=== PATIENT | male | born 1960 | race Two or more races ===

== ENCOUNTER 2020-11-03 09:34 | Inpatient (IN) | payer OTHER ==
[2020-11-03 10:03] VITALS: BMI 32.3
[2020-11-03] MEDS ORDERED: MAGNESIUM CITRATE 300 ML BOTTLE PO PRN (11:04)
[2020-11-03] MEDS ORDERED: MAGNESIUM HYDROX 2400MG/30ML ORAL SUSPENSION 30 ML CUP PO PRN (11:04)
[2020-11-03] MEDS ORDERED: ONDANSETRON *ODT* 4 MG TABLET SL PRN (11:04)
[2020-11-03] MEDS ORDERED: ACETAMINOPHEN 325 MG TABLET (FP) PO PRN ×2 (11:04)
[2020-11-03] MEDS ORDERED: MAG HYDROX/AL HYDROX/SIMETH 30 ML UNIT-DOSE CUP PO PRN (11:04)
[2020-11-03] MEDS ORDERED: MENTHOL/PHENOL 1 EACH UD MM PRN (11:04)
[2020-11-03] MEDS ORDERED: hydrOXYzine PAMOATE 25 MG CAPSULE (FP) PO PRN (11:04)
[2020-11-03] MEDS ORDERED: METHOCARBAMOL 500 MG TABLET PO PRN (11:04)
[2020-11-03] MEDS ORDERED: ALBUTEROL SO4 2.5/IPRATROPIUM 0.5 INH SOL 3 ML VIAL.NEB. NEB PRN (11:08)
[2020-11-03] MEDS ORDERED: ALBUTEROL SO4 HFA INHALER IH PRN (11:09)
[2020-11-03] MEDS ORDERED: LOSARTAN POTASSIUM 25 MG TABLET PO SCH (11:15)
[2020-11-03] MEDS: BUDESONIDE/FORMETEROL FUMARATE 160/4.5 mcg INHALER IH SCH (12:57)
[2020-11-03] MEDS: BUPRENORPHINE/NALOXONE 8 MG/2 MG FILM PACKET SL SCH ×2 (12:58→22:04)
[2020-11-03] MEDS: NICOTINE 14 MG/24 HOURS TOPICAL PATCH TD SCH (12:58)
[2020-11-03] MEDS: sitaGLIPtin PHOSPHATE 50 MG TABLET PO SCH (15:24)
[2020-11-03] MEDS: chlordiazePOXIDE HCL 25 MG CAPSULE PO SCH ×2 (17:28→22:03)
[2020-11-03] MEDS: INSULIN SLIDING SCALE (NOVOLOG) 1 VIAL SQ SCH ×2 (17:29→21:31)
[2020-11-03] MEDS ORDERED: TRIMETHOBENZAMIDE HCL 200MG/2ML INJ IM ONE ×2 (17:47→22:21)
[2020-11-03] MEDS ORDERED: METOPROLOL TARTRATE 50 MG TABLET (FP) PO ONE (17:49)
[2020-11-03] MEDS: chlordiazePOXIDE HCL 25 MG CAPSULE PO PRN (20:19)
[2020-11-03] MEDS ORDERED: amLODIPine BESYLATE 10 MG TABLET (FP) PO ONE (21:33)
[2020-11-03] MEDS: INSULIN (LEVEMIR) 100 UNITS/ML UNITS SQ SCH (22:03)
[2020-11-03] MEDS: THIAMINE HCL 100 MG TABLET (FP) PO SCH (22:04)
[2020-11-03] MEDS: ATORVASTATIN CA 80 MG TABLET (FP) PO SCH (22:04)
[2020-11-03] MEDS: MELATONIN 5 MG TABLETS PO SCH (22:04)
[2020-11-03] MEDS ORDERED: LISINOPRIL 20 MG TABLET PO ONE (23:53)
[2020-11-04] MEDS: chlordiazePOXIDE HCL 25 MG CAPSULE PO SCH ×4 (06:22→23:32)
[2020-11-04] MEDS: sitaGLIPtin PHOSPHATE 50 MG TABLET PO SCH (06:24)
[2020-11-04] MEDS: INSULIN SLIDING SCALE (NOVOLOG) 1 VIAL SQ SCH ×4 (06:47→22:09)
[2020-11-04 09:23] LABS: HEMATOCRIT 39.3 % (35.4-49); HEMOGLOBIN 13.5 GM/dL (11.7-16.9); MCH 31.2 pg (25.7-33.7); MCHC 34.4 g/dl (32.0-35.9); MEAN CELL VOLUME 90.7 fl (80-96); MEAN PLT VOLUME 9.4 fl (7.5-11.1); PLATELET COUNT 253 K/MM3 (134-434); RBC 4.33 M/mm3 (4.00-5.60); RDW 15.8 % (11.9-15.9); WHITE BLOOD COUNT 13.4 K/mm3 (4.0-10.0)
[2020-11-04 09:28] LABS: POTASSIUM 3.2 mmol/L (3.5-5.1)
[2020-11-04 09:34] LABS: ALBUMIN 3.7 g/dl (3.4-5.0); BLOOD UREA NITROGEN 8.4 mg/dL (7-18)
[2020-11-04 09:37] LABS: CREATININE 0.9 mg/dL (0.55-1.3)
[2020-11-04 09:39] LABS: TOT PROT 7.1 g/dl (6.4-8.2)
[2020-11-04] MEDS: PRENATAL VITAMINS W/ FOLIC ACID TABLET (FP) PO SCH (10:01)
[2020-11-04] MEDS: MONTELUKAST NA 10 MG TABLET PO SCH (10:02)
[2020-11-04] MEDS: LOSARTAN POTASSIUM 50 MG TABLET PO SCH (10:02)
[2020-11-04] MEDS: amLODIPine BESYLATE 5 MG TABLET (FP) PO SCH (10:02)
[2020-11-04] MEDS: NICOTINE 14 MG/24 HOURS TOPICAL PATCH TD SCH (10:02)
[2020-11-04] MEDS: BUPRENORPHINE/NALOXONE 8 MG/2 MG FILM PACKET SL SCH ×2 (10:03→23:04)
[2020-11-04] MEDS: BUDESONIDE/FORMETEROL FUMARATE 160/4.5 mcg INHALER IH SCH (10:05)
[2020-11-04] MEDS: QUEtiapine FUMARATE 100 MG TABLET (FP) PO SCH ×2 (11:05→23:04)
[2020-11-04] MEDS ORDERED: POTASSIUM CHLORIDE TABS 20 MEQ TABLET.ER (FP) PO ONE ×2 (13:12→17:13)
[2020-11-04] MEDS: PARoxetine HCL 20 MG TABLET PO SCH (18:12)
[2020-11-04] MEDS ORDERED: LOPERAMIDE HCL 2 MG CAPSULE PO ONE (18:20)
[2020-11-04] MEDS: INSULIN (LEVEMIR) 100 UNITS/ML UNITS SQ SCH (23:03)
[2020-11-04] MEDS: THIAMINE HCL 100 MG TABLET (FP) PO SCH (23:04)
[2020-11-04] MEDS: MELATONIN 5 MG TABLETS PO SCH (23:04)
[2020-11-04] MEDS: ATORVASTATIN CA 80 MG TABLET (FP) PO SCH (23:04)
[2020-11-04] MEDS: chlordiazePOXIDE HCL 25 MG CAPSULE PO PRN (23:31)
[2020-11-05] MEDS: sitaGLIPtin PHOSPHATE 50 MG TABLET PO SCH (06:08)
[2020-11-05] MEDS: chlordiazePOXIDE HCL 25 MG CAPSULE PO SCH ×2 (06:08→10:06)
[2020-11-05] MEDS: INSULIN SLIDING SCALE (NOVOLOG) 1 VIAL SQ SCH ×2 (06:08→11:09)
[2020-11-05] MEDS: BUPRENORPHINE/NALOXONE 8 MG/2 MG FILM PACKET SL SCH (10:05)
[2020-11-05] MEDS: MONTELUKAST NA 10 MG TABLET PO SCH (10:05)
[2020-11-05] MEDS: PARoxetine HCL 20 MG TABLET PO SCH (10:06)
[2020-11-05] MEDS: LOSARTAN POTASSIUM 50 MG TABLET PO SCH (10:06)
[2020-11-05] MEDS: QUEtiapine FUMARATE 100 MG TABLET (FP) PO SCH (10:06)
[2020-11-05] MEDS: BUDESONIDE/FORMETEROL FUMARATE 160/4.5 mcg INHALER IH SCH (10:06)
[2020-11-05] MEDS: amLODIPine BESYLATE 5 MG TABLET (FP) PO SCH (10:06)
[2020-11-05] MEDS: PRENATAL VITAMINS W/ FOLIC ACID TABLET (FP) PO SCH (10:07)
[2020-11-05] MEDS: NICOTINE 14 MG/24 HOURS TOPICAL PATCH TD SCH (10:07)
[2020-11-05 10:45] LABS: POTASSIUM 3.6 mmol/L (3.5-5.1)
[2020-11-05 10:47] LABS: BLOOD UREA NITROGEN 12.6 mg/dL (7-18)
[2020-11-05 10:50] LABS: CREATININE 3.3 mg/dL (0.55-1.3)
[2020-11-05 10:54] LABS: CALCIUM 9.3 mg/dL (8.5-10.1)
[2020-11-05 13:01] VITALS: BP 109/72; PULSE 91; TEMP 98.2
[2020-11-06] MEDS ORDERED: chlordiazePOXIDE HCL 10 MG CAPSULE PO PRN
[2020-11-06] MEDS ORDERED: chlordiazePOXIDE HCL 10 MG CAPSULE PO SCH (05:00)
[2020-11-07] MEDS ORDERED: chlordiazePOXIDE HCL 10 MG CAPSULE PO SCH (05:00)
[2020-11-08] MEDS ORDERED: chlordiazePOXIDE HCL 10 MG CAPSULE PO ONE (05:00)
== END 2020-11-05 15:58 | disposition short-term general hospital (02) | DRG 897 ==
LOC: YASAS 09:34 → Y3N 11:28
PROVIDERS: ADMIT Allergy & Immunology; ATTEND Allergy & Immunology
PROC: HZ2ZZZZ Detoxification Services for Substance Abuse Treatment (ICD-10-PCS; principal; 2020-11-03)
DX: F10.230 Alcohol dependence with withdrawal, uncomplicated (principal); F11.20 Opioid dependence, uncomplicated; F32.2 Major depressive disorder, single episode, severe without psychotic features; C34.91 Malignant neoplasm of unspecified part of right bronchus or lung; E87.1 Hypo-osmolality and hyponatremia; G40.89 Other seizures; F17.210 Nicotine dependence, cigarettes, uncomplicated; F10.282 Alcohol dependence with alcohol-induced sleep disorder; F10.24 Alcohol dependence with alcohol-induced mood disorder; E87.6 Hypokalemia; E78.5 Hyperlipidemia, unspecified; E11.42 Type 2 diabetes mellitus with diabetic polyneuropathy; Z79.4 Long term (current) use of insulin; I10 Essential (primary) hypertension; J44.9 Chronic obstructive pulmonary disease, unspecified; N40.0 Benign prostatic hyperplasia without lower urinary tract symptoms; R06.2 Wheezing; Z88.6 Allergy status to analgesic agent; Z91.018 Allergy to other foods; Z98.890 Other specified postprocedural states
CPT/HCPCS: 36415; 80048; 80053; 82962; 85027; 86780; 93005; 93010; C9803; Q0162; U0003; U0005

== ENCOUNTER 2020-11-05 11:16 | Inpatient (IN) | payer OTHER ==
[2020-11-05] MEDS ORDERED: SODIUM CHLORIDE 0.9% 500 ML INFUS.BAG IV ONE (12:29)
[2020-11-05] MEDS ORDERED: methylPREDNISolone NA SUCC 125 MG/2 ML VIAL IVPB ONE ×2 (13:30→18:04)
[2020-11-05 13:40] LABS: BASO % 0.6 % (0-2.0); HEMATOCRIT 36.8 % (35.4-49); HEMOGLOBIN 12.4 GM/dL (11.7-16.9); LYMPH % 10.3 % (8-40); MCHC 33.8 g/dl (32.0-35.9); MEAN CELL VOLUME 91.7 fl (80-96); MEAN PLT VOLUME 9.6 fl (7.5-11.1); MONO % 5.1 % (3.8-10.2); PLATELET COUNT 184 K/MM3 (134-434); RBC 4.01 M/mm3 (4.00-5.60); RDW 15.8 % (11.9-15.9); WHITE BLOOD COUNT 19.1 K/mm3 (4.0-10.0)
[2020-11-05] MEDS ORDERED: methylPREDNISolone NA SUCC 125 MG/2 ML VIAL ONE ×2 (13:41→19:51)
[2020-11-05 13:42] LABS: INR 0.9 (0.83-1.09); PROTHROMBIN TIME (PATIENT) 10.9 SEC (9.7-13.0)
[2020-11-05 13:45] LABS: ACTIVATED PTT 26.1 SECONDS (25.2-36.5)
[2020-11-05] MEDS: ALBUTEROL SO4 2.5/IPRATROPIUM 0.5 INH SOL 3 ML VIAL.NEB. NEB SCH ×2 (13:50→14:05)
[2020-11-05 14:06] LABS: CHLORIDE 97 mmol/L (98-107); SODIUM 134 mmol/L (136-145)
[2020-11-05 14:08] LABS: ALBUMIN 3.4 g/dl (3.4-5.0); ANION GAP 11 MMOL/L (8-16); BLOOD UREA NITROGEN 13.3 mg/dL (7-18); CALCIUM 9.6 mg/dL (8.5-10.1); CO2 25 mmol/L (21-32); GLUCOSE,RANDOM 73 mg/dL (74-106)
[2020-11-05 14:11] LABS: SGOT/AST 49 U/L (15-37); SGPT/ALT 27 U/L (13-61)
[2020-11-05 14:13] LABS: TOT PROT 6.6 g/dl (6.4-8.2)
[2020-11-05 14:14] LABS: ALK PHOS 111 U/L (45-117)
[2020-11-05 14:20] LABS: ANISOCYTOSIS 1+; MACROCYTOSIS 0; PLATELET ESTIMATE NORMAL
[2020-11-05 19:30] LABS: EPI CELLS >36 /uL (0-25.1); HYALINE CASTS 46 /uL (0-3.1); URINE APPEARANCE TURBID; URINE BACTERIA 95 /uL (0-1359); URINE BILIRUBIN NEGATIVE (NEGATIVE); URINE COLOR YELLOW; URINE GLUCOSE (UA) NEGATIVE (NEGATIVE); URINE KETONE TRACE (NEGATIVE); URINE LEUK ESTERASE NEGATIVE (NEGATIVE); URINE NITRITE NEGATIVE (NEGATIVE); URINE PROTEIN 2+ (NEGATIVE); URINE UROBILINOGEN 0.2 mg/dL (0.2-1.0); URINE WBC 50 /uL (0-25.8)
[2020-11-05 19:54] LABS: URINE AMPHETAMINES NEGATIVE ng/ml (CUTOFF=500); URINE BARBITURATES NEGATIVE ng/ml (CUTOFF=200)
[2020-11-05 19:55] LABS: COCAINE, UR NEGATIVE ng/ml (CUTOFF=300); METHADONE, UR NEGATIVE ng/ml (CUTOFF=300); OPIATES, URI NEGATIVE ng/ml (CUTOFF=300)
[2020-11-05 19:56] LABS: PHENCYCLIDINE,URINE NEGATIVE ng/ml (CUTOFF=25)
[2020-11-05 20:39] LABS: URINE BENZODIAZEPINES POSITIVE ng/ml (CUTOFF=200)
[2020-11-05] MEDS ORDERED: BUPRENORPHINE/NALOXONE 8 MG/2 MG FILM PACKET ONE (23:54)
[2020-11-05] MEDS: BUPRENORPHINE/NALOXONE 8 MG/2 MG FILM PACKET SL SCH (23:58)
[2020-11-06] MEDS ORDERED: chlordiazePOXIDE 5 MG CAPSULE ONE
[2020-11-06] MEDS: chlordiazePOXIDE HCL 10 MG CAPSULE PO SCH ×2 (00:02→12:01)
[2020-11-06 01:31] LABS: URINE RBC 95.4 /uL (0-23.9)
[2020-11-06] MEDS ORDERED: guaiFENesin/D-METHORPHAN HB 10 ML UNIT-DOSE CUPS PO PRN (02:26)
[2020-11-06] MEDS: DOCUSATE SODIUM 100 MG CAPSULE (FP) PO SCH ×3 (03:55→21:51)
[2020-11-06 06:49] LABS: POTASSIUM 4.4 mmol/L (3.5-5.1)
[2020-11-06 06:51] LABS: ALBUMIN 3.2 g/dl (3.4-5.0); CALCIUM 8.2 mg/dL (8.5-10.1)
[2020-11-06 06:52] LABS: BLOOD UREA NITROGEN 30.2 mg/dL (7-18); MAGNESIUM 1.2 mg/dL (1.8-2.4)
[2020-11-06 06:54] LABS: CREATININE 2.8 mg/dL (0.55-1.3)
[2020-11-06 06:55] LABS: PHOSPHOROUS 4.2 mg/dL (2.5-4.9)
[2020-11-06 06:56] LABS: BILIRUBIN,TOTAL 0.6 mg/dL (0.2-1); TOT PROT 6.2 g/dl (6.4-8.2)
[2020-11-06] MEDS: INSULIN SLIDING SCALE (NOVOLOG) 1 VIAL SQ SCH ×4 (07:07→22:31)
[2020-11-06] MEDS: HEPARIN NA (PORCINE) 5,000 UNITS/ML 1ML VIAL SQ SCH ×3 (07:07→21:53)
[2020-11-06] MEDS ORDERED: THIAMINE HCL 100 MG TABLET (FP) ONE (08:49)
[2020-11-06] MEDS ORDERED: predniSONE 20 MG TABLET (UD) ONE (08:49)
[2020-11-06] MEDS ORDERED: ALBUTEROL SO4 2.5/IPRATROPIUM 0.5 INH SOL 3 ML VIAL.NEB. NEB ONE (08:49)
[2020-11-06] MEDS ORDERED: BUPRENORPHINE/NALOXONE 8 MG/2 MG FILM PACKET ONE (08:50)
[2020-11-06] MEDS ORDERED: PANTOPRAZOLE 20 MG TABLET PO ONE (08:50)
[2020-11-06] MEDS ORDERED: CEFTRIAXONE 1 GM/50 ML BAG ONE (08:51)
[2020-11-06] MEDS ORDERED: AZITHROMYCIN IVPB 500 MG/250 ML BAG IVPB ONE (08:51)
[2020-11-06] MEDS ORDERED: FOLIC ACID 1 MG TABLET (FP) ONE (08:51)
[2020-11-06] MEDS ORDERED: DOCUSATE SODIUM 100 MG CAPSULE (FP) PO ONE (08:51)
[2020-11-06] MEDS: CEFTRIAXONE 1 GM in DEXTROSE 5%-WATER - 50 ML IVPB SCH (09:32)
[2020-11-06] MEDS: ALBUTEROL SO4 2.5/IPRATROPIUM 0.5 INH SOL 3 ML VIAL.NEB. NEB SCH ×3 (09:45→20:30)
[2020-11-06] MEDS: POLYETHYLENE GLYCOL 3350 119 GM BTL PO SCH (09:46)
[2020-11-06] MEDS: FOLIC ACID 1 MG TABLET (FP) PO SCH (09:46)
[2020-11-06] MEDS: NICOTINE 7 MG/24 HOURS TOPICAL PATCH TD SCH (09:46)
[2020-11-06] MEDS: PANTOPRAZOLE 20 MG TABLET PO SCH (09:46)
[2020-11-06] MEDS: THIAMINE HCL 100 MG TABLET (FP) PO SCH (09:47)
[2020-11-06] MEDS: BUPRENORPHINE/NALOXONE 8 MG/2 MG FILM PACKET SL SCH ×2 (09:47→21:51)
[2020-11-06] MEDS: AZITHROMYCIN IVPB 500 MG/250 ML BAG IVPB SCH (09:47)
[2020-11-06] MEDS ORDERED: predniSONE 20 MG TABLET (UD) PO SCH (10:00)
[2020-11-06 11:02] LABS: HEMATOCRIT 32.1 % (35.4-49); HEMOGLOBIN 11.1 GM/dL (11.7-16.9); MCH 31.5 pg (25.7-33.7); MCHC 34.5 g/dl (32.0-35.9); MEAN CELL VOLUME 91.4 fl (80-96); MEAN PLT VOLUME 9.8 fl (7.5-11.1); PLATELET COUNT 156 K/MM3 (134-434); RBC 3.51 M/mm3 (4.00-5.60); RDW 15.6 % (11.9-15.9); WHITE BLOOD COUNT 12.6 K/mm3 (4.0-10.0)
[2020-11-06] MEDS: CLOTRIMAZOLE 1% CREAM 15 GM TUBE TP SCH ×2 (12:17→21:54)
[2020-11-06 14:12] VITALS: BMI 32.4
[2020-11-06] MEDS: methylPREDNISolone NA SUCC 40 MG/1 ML VIAL IVPUSH SCH ×2 (14:59→21:42)
[2020-11-06] MEDS ORDERED: MAGNESIUM SULF 50% (8.12 MEQ/2 ML-1 GM VIAL) IVPB ONE (15:34)
[2020-11-06] MEDS ORDERED: MAGNESIUM OXIDE 400 MG TABLET (FP) PO ONE (15:35)
[2020-11-06] MEDS ORDERED: SODIUM CHLORIDE 1,000 ML IV SCH (15:45)
[2020-11-06] MEDS ORDERED: PT OWN MED DRAWER 7, Y5N ONE (21:48)
[2020-11-06] MEDS ORDERED: chlordiazePOXIDE HCL 10 MG CAPSULE PO ONE (22:00)
[2020-11-07] MEDS: methylPREDNISolone NA SUCC 40 MG/1 ML VIAL IVPUSH SCH ×4 (02:09→21:51)
[2020-11-07] MEDS: INSULIN SLIDING SCALE (NOVOLOG) 1 VIAL SQ SCH ×4 (06:40→21:34)
[2020-11-07] MEDS: HEPARIN NA (PORCINE) 5,000 UNITS/ML 1ML VIAL SQ SCH ×3 (06:42→21:35)
[2020-11-07] MEDS: ALBUTEROL SO4 2.5/IPRATROPIUM 0.5 INH SOL 3 ML VIAL.NEB. NEB SCH ×3 (07:55→20:04)
[2020-11-07 08:43] LABS: POTASSIUM 4.1 mmol/L (3.5-5.1)
[2020-11-07 08:49] LABS: CALCIUM 9.3 mg/dL (8.5-10.1)
[2020-11-07 08:50] LABS: ALBUMIN 3.4 g/dl (3.4-5.0); BLOOD UREA NITROGEN 39.2 mg/dL (7-18)
[2020-11-07 08:53] LABS: CREATININE 1.4 mg/dL (0.55-1.3)
[2020-11-07 08:54] LABS: BILIRUBIN,TOTAL 0.4 mg/dL (0.2-1); TOT PROT 6.7 g/dl (6.4-8.2)
[2020-11-07] MEDS ORDERED: PT OWN MED DRAWER 7, Y5N ONE (09:58)
[2020-11-07] MEDS: PANTOPRAZOLE 20 MG TABLET PO SCH (10:02)
[2020-11-07] MEDS: BUPRENORPHINE/NALOXONE 8 MG/2 MG FILM PACKET SL SCH ×2 (10:02→21:37)
[2020-11-07] MEDS: DOCUSATE SODIUM 100 MG CAPSULE (FP) PO SCH ×2 (10:02→21:37)
[2020-11-07] MEDS: THIAMINE HCL 100 MG TABLET (FP) PO SCH (10:02)
[2020-11-07] MEDS: POLYETHYLENE GLYCOL 3350 119 GM BTL PO SCH (10:03)
[2020-11-07] MEDS: FOLIC ACID 1 MG TABLET (FP) PO SCH (10:03)
[2020-11-07] MEDS: NICOTINE 7 MG/24 HOURS TOPICAL PATCH TD SCH (10:03)
[2020-11-07 14:07] LABS: HEP B CORE AB, TOT Negative (Negative)
[2020-11-07] MEDS ORDERED: predniSONE 20 MG TABLET (UD) PO ONE (15:00)
[2020-11-07] MEDS ORDERED: cefTRIAXone SODIUM 1 GM VIAL ONE (16:50)
[2020-11-07] MEDS ORDERED: DEXTROSE 5%-WATER - 50 ML IVPB ONE (16:50)
[2020-11-07] MEDS: CEFTRIAXONE 1 GM in DEXTROSE 5%-WATER - 50 ML IVPB SCH (17:00)
[2020-11-07] MEDS: AZITHROMYCIN IVPB 500 MG/250 ML BAG IVPB SCH (17:00)
[2020-11-08] MEDS ORDERED: chlordiazePOXIDE HCL 10 MG CAPSULE PO PRN
[2020-11-08] MEDS: CLOTRIMAZOLE 1% CREAM 15 GM TUBE TP SCH ×4 (01:29→21:29)
[2020-11-08 01:32] LABS: URINE APPEARANCE CLEAR; URINE BILIRUBIN NEGATIVE (NEGATIVE); URINE COLOR YELLOW; URINE GLUCOSE (UA) 3+ (NEGATIVE); URINE KETONE NEGATIVE (NEGATIVE); URINE LEUK ESTERASE NEGATIVE (NEGATIVE); URINE NITRITE NEGATIVE (NEGATIVE); URINE PROTEIN NEGATIVE (NEGATIVE); URINE UROBILINOGEN 0.2 mg/dL (0.2-1.0)
[2020-11-08] MEDS: methylPREDNISolone NA SUCC 40 MG/1 ML VIAL IVPUSH SCH ×4 (03:00→21:28)
[2020-11-08] MEDS: HEPARIN NA (PORCINE) 5,000 UNITS/ML 1ML VIAL SQ SCH ×4 (05:52→21:35)
[2020-11-08] MEDS: INSULIN SLIDING SCALE (NOVOLOG) 1 VIAL SQ SCH ×4 (06:53→21:29)
[2020-11-08] MEDS: ALBUTEROL SO4 2.5/IPRATROPIUM 0.5 INH SOL 3 ML VIAL.NEB. NEB SCH ×3 (07:45→20:00)
[2020-11-08] MEDS ORDERED: cefTRIAXone SODIUM 1 GM VIAL ONE (09:37)
[2020-11-08] MEDS ORDERED: DEXTROSE 5%-WATER - 50 ML IVPB ONE (09:37)
[2020-11-08] MEDS ORDERED: PT OWN MED DRAWER 7, Y5N ONE (09:37)
[2020-11-08] MEDS: POLYETHYLENE GLYCOL 3350 119 GM BTL PO SCH (09:50)
[2020-11-08] MEDS: PANTOPRAZOLE 20 MG TABLET PO SCH (09:50)
[2020-11-08] MEDS: FOLIC ACID 1 MG TABLET (FP) PO SCH (09:50)
[2020-11-08] MEDS: DOCUSATE SODIUM 100 MG CAPSULE (FP) PO SCH ×2 (09:50→21:27)
[2020-11-08] MEDS: CEFTRIAXONE 1 GM in DEXTROSE 5%-WATER - 50 ML IVPB SCH (09:51)
[2020-11-08] MEDS: BUPRENORPHINE/NALOXONE 8 MG/2 MG FILM PACKET SL SCH ×2 (09:51→21:33)
[2020-11-08] MEDS: THIAMINE HCL 100 MG TABLET (FP) PO SCH (09:55)
[2020-11-08] MEDS: AZITHROMYCIN IVPB 500 MG/250 ML BAG IVPB SCH (09:55)
[2020-11-08] MEDS: NICOTINE 7 MG/24 HOURS TOPICAL PATCH TD SCH (10:08)
[2020-11-08 11:09] LABS: ANTIGLOMERULAR BASEMENT MEN.AB 3 units (0-20)
[2020-11-08] MEDS: LOSARTAN POTASSIUM 25 MG TABLET PO SCH (12:56)
[2020-11-08] MEDS: amLODIPine BESYLATE 5 MG TABLET (FP) PO SCH (12:56)
[2020-11-08] MEDS: ESCITALOPRAM OXALATE 10 MG TABLET PO SCH (12:57)
[2020-11-08 16:08] LABS: ATYPICAL pANCA <1:20 titer (Neg:<1:20); C-ANCA <1:20 titer (Neg:<1:20)
[2020-11-08] MEDS: QUEtiapine FUMARATE 100 MG TABLET (FP) PO SCH (22:18)
[2020-11-09] MEDS: methylPREDNISolone NA SUCC 40 MG/1 ML VIAL IVPUSH SCH ×4 (03:51→21:43)
[2020-11-09] MEDS: HEPARIN NA (PORCINE) 5,000 UNITS/ML 1ML VIAL SQ SCH ×3 (05:11→21:44)
[2020-11-09] MEDS: INSULIN SLIDING SCALE (NOVOLOG) 1 VIAL SQ SCH ×4 (06:38→21:45)
[2020-11-09] MEDS: ALBUTEROL SO4 2.5/IPRATROPIUM 0.5 INH SOL 3 ML VIAL.NEB. NEB SCH ×3 (08:52→20:25)
[2020-11-09] MEDS ORDERED: PT OWN MED DRAWER 7, Y5N ONE ×2 (09:53→21:51)
[2020-11-09] MEDS ORDERED: cefTRIAXone SODIUM 1 GM VIAL ONE (09:54)
[2020-11-09] MEDS ORDERED: DEXTROSE 5%-WATER - 50 ML IVPB ONE (09:54)
[2020-11-09] MEDS: DOCUSATE SODIUM 100 MG CAPSULE (FP) PO SCH ×2 (09:59→21:44)
[2020-11-09] MEDS: LOSARTAN POTASSIUM 25 MG TABLET PO SCH (10:00)
[2020-11-09] MEDS: ESCITALOPRAM OXALATE 10 MG TABLET PO SCH (10:00)
[2020-11-09] MEDS: amLODIPine BESYLATE 5 MG TABLET (FP) PO SCH (10:00)
[2020-11-09] MEDS: CEFTRIAXONE 1 GM in DEXTROSE 5%-WATER - 50 ML IVPB SCH (10:00)
[2020-11-09] MEDS: BUPRENORPHINE/NALOXONE 8 MG/2 MG FILM PACKET SL SCH ×2 (10:00→21:55)
[2020-11-09] MEDS: THIAMINE HCL 100 MG TABLET (FP) PO SCH (10:00)
[2020-11-09] MEDS: NICOTINE 7 MG/24 HOURS TOPICAL PATCH TD SCH (10:00)
[2020-11-09] MEDS: PANTOPRAZOLE 20 MG TABLET PO SCH (10:00)
[2020-11-09] MEDS: CLOTRIMAZOLE 1% CREAM 15 GM TUBE TP SCH ×2 (10:00→21:55)
[2020-11-09] MEDS: FOLIC ACID 1 MG TABLET (FP) PO SCH (10:00)
[2020-11-09] MEDS: POLYETHYLENE GLYCOL 3350 119 GM BTL PO SCH (10:01)
[2020-11-09 10:55] LABS: BASO % 0.4 % (0-2.0); HEMATOCRIT 33.1 % (35.4-49); HEMOGLOBIN 11.6 GM/dL (11.7-16.9); LYMPH % 5.7 % (8-40); MCH 31.9 pg (25.7-33.7); MCHC 34.9 g/dl (32.0-35.9); MEAN CELL VOLUME 91.4 fl (80-96); MEAN PLT VOLUME 9.3 fl (7.5-11.1); MONO % 9.3 % (3.8-10.2); NEUT % 84.6 % (42.8-82.8); PLATELET COUNT 185 K/MM3 (134-434); RBC 3.62 M/mm3 (4.00-5.60); WHITE BLOOD COUNT 12.9 K/mm3 (4.0-10.0)
[2020-11-09] MEDS: AZITHROMYCIN IVPB 500 MG/250 ML BAG IVPB SCH (10:59)
[2020-11-09 11:13] LABS: POTASSIUM 4.6 mmol/L (3.5-5.1)
[2020-11-09 11:16] LABS: ALBUMIN 3.3 g/dl (3.4-5.0); CALCIUM 9.8 mg/dL (8.5-10.1)
[2020-11-09 11:17] LABS: BLOOD UREA NITROGEN 29.6 mg/dL (7-18); MAGNESIUM 1.7 mg/dL (1.8-2.4)
[2020-11-09 11:21] LABS: BILIRUBIN,TOTAL 0.2 mg/dL (0.2-1); TOT PROT 6.5 g/dl (6.4-8.2)
[2020-11-09 11:57] LABS: ANISOCYTOSIS 0; MACROCYTOSIS 0; PLATELET ESTIMATE NORMAL
[2020-11-09] MEDS ORDERED: MAGNESIUM SULF 50% (8.12 MEQ/2 ML-1 GM VIAL) IVPB ONE (14:31)
[2020-11-09] MEDS ORDERED: NICOTINE POLACRILEX 2 MG GUM BUC PRN (14:59)
[2020-11-09] MEDS ORDERED: INSULIN (NOVOLOG) ASPART 100 UNITS/ML 10ML VIAL ONE ×2 (17:05→17:37)
[2020-11-09] MEDS ORDERED: QUEtiapine FUMARATE 50 MG TABLET ONE (21:10)
[2020-11-09] MEDS: GABAPENTIN 400 MG CAPSULE PO SCH (21:43)
[2020-11-09] MEDS: BUDESONIDE/FORMETEROL FUMARATE 160/4.5 mcg INHALER IH SCH (21:49)
[2020-11-09] MEDS: PRAZOSIN HCL 1 MG CAPSULE PO SCH (21:54)
[2020-11-09] MEDS: QUEtiapine FUMARATE 100 MG TABLET (FP) PO SCH (21:55)
[2020-11-09] MEDS ORDERED: MONTELUKAST NA 10 MG TABLET PO SCH (22:00)
[2020-11-09] MEDS ORDERED: ATORVASTATIN CA 80 MG TABLET (FP) PO SCH (22:00)
[2020-11-10] MEDS: methylPREDNISolone NA SUCC 40 MG/1 ML VIAL IVPUSH SCH ×2 (02:02→10:23)
[2020-11-10] MEDS: HEPARIN NA (PORCINE) 5,000 UNITS/ML 1ML VIAL SQ SCH ×2 (06:01→13:33)
[2020-11-10] MEDS: GABAPENTIN 400 MG CAPSULE PO SCH ×2 (06:05→13:33)
[2020-11-10] MEDS: INSULIN SLIDING SCALE (NOVOLOG) 1 VIAL SQ SCH ×3 (06:05→17:17)
[2020-11-10] MEDS: ALBUTEROL SO4 2.5/IPRATROPIUM 0.5 INH SOL 3 ML VIAL.NEB. NEB SCH ×2 (07:40→14:15)
[2020-11-10] MEDS ORDERED: cefTRIAXone SODIUM 1 GM VIAL ONE (09:42)
[2020-11-10] MEDS ORDERED: DEXTROSE 5%-WATER - 50 ML IVPB ONE (09:43)
[2020-11-10] MEDS ORDERED: FLUoxetine HCL 10 MG CAPSULE PO SCH (10:00)
[2020-11-10] MEDS ORDERED: BUDESONIDE/FORMETEROL FUMARATE 160/4.5 mcg INHALER IH SCH (10:00)
[2020-11-10] MEDS ORDERED: TIOTROPIUM BROMIDE 2.5 MCG (SPIRIVA) RESPIMAT INHALER IH SCH (10:00)
[2020-11-10] MEDS ORDERED: PATIENT'S OWN MEDICATION (NON-FORMULARY) (Paroxetine Hcl [Paxil] 40 MG Tablet) PO SCH (10:00)
[2020-11-10] MEDS: DOCUSATE SODIUM 100 MG CAPSULE (FP) PO SCH (10:20)
[2020-11-10] MEDS: THIAMINE HCL 100 MG TABLET (FP) PO SCH (10:21)
[2020-11-10] MEDS: BUPRENORPHINE/NALOXONE 8 MG/2 MG FILM PACKET SL SCH (10:21)
[2020-11-10] MEDS: NICOTINE 7 MG/24 HOURS TOPICAL PATCH TD SCH (10:21)
[2020-11-10] MEDS: PANTOPRAZOLE 20 MG TABLET PO SCH (10:21)
[2020-11-10] MEDS: FOLIC ACID 1 MG TABLET (FP) PO SCH (10:22)
[2020-11-10] MEDS: amLODIPine BESYLATE 5 MG TABLET (FP) PO SCH (10:22)
[2020-11-10] MEDS: LOSARTAN POTASSIUM 25 MG TABLET PO SCH (10:23)
[2020-11-10] MEDS: ESCITALOPRAM OXALATE 10 MG TABLET PO SCH (10:23)
[2020-11-10] MEDS: CLOTRIMAZOLE 1% CREAM 15 GM TUBE TP SCH (10:23)
[2020-11-10] MEDS: POLYETHYLENE GLYCOL 3350 119 GM BTL PO SCH (10:24)
[2020-11-10] MEDS: AZITHROMYCIN IVPB 500 MG/250 ML BAG IVPB SCH (10:24)
[2020-11-10] MEDS: CEFTRIAXONE 1 GM in DEXTROSE 5%-WATER - 50 ML IVPB SCH (10:24)
[2020-11-10] MEDS: BUDESONIDE/FORMETEROL FUMARATE 160/4.5 mcg INHALER IH SCH (10:26)
[2020-11-10] MEDS ORDERED: methylPREDNISolone NA SUCC 40 MG/1 ML VIAL IVPUSH SCH (11:45)
[2020-11-10] MEDS ORDERED: INSULIN (NOVOLOG) ASPART 100 UNITS/ML 10ML VIAL ONE (12:12)
[2020-11-10 13:14] VITALS: BP 122/68; PULSE 79; TEMP 98
[2020-11-10] MEDS ORDERED: PT OWN MED DRAWER 7, Y5N ONE (13:21)
[2020-11-10] MEDS: PRAZOSIN HCL 1 MG CAPSULE PO SCH (13:33)
== END 2020-11-10 19:35 | disposition left against medical advice (07) | DRG 191 ==
LOC: JER 11:16 → JERBED 13:31 → J5S 11-06 10:19 → J7W 11-09 15:45
PROVIDERS: ADMIT Internal Medicine; ATTEND Nurse Practitioner Acute Care
DX: J44.1 Chronic obstructive pulmonary disease with (acute) exacerbation (principal); N17.9 Acute kidney failure, unspecified; F11.20 Opioid dependence, uncomplicated; C34.11 Malignant neoplasm of upper lobe, right bronchus or lung; J96.11 Chronic respiratory failure with hypoxia; E11.42 Type 2 diabetes mellitus with diabetic polyneuropathy; E78.5 Hyperlipidemia, unspecified; Z79.4 Long term (current) use of insulin; R91.1 Solitary pulmonary nodule; F32.9 Major depressive disorder, single episode, unspecified; F41.9 Anxiety disorder, unspecified; G47.30 Sleep apnea, unspecified; K59.00 Constipation, unspecified; Z99.81 Dependence on supplemental oxygen; Z86.73 Personal history of transient ischemic attack (TIA), and cerebral infarction without residual deficits; I95.9 Hypotension, unspecified; F10.10 Alcohol abuse, uncomplicated; E11.22 Type 2 diabetes mellitus with diabetic chronic kidney disease; I12.9 Hypertensive chronic kidney disease with stage 1 through stage 4 chronic kidney disease, or unspecified chronic kidney disease; N18.9 Chronic kidney disease, unspecified; I25.10 Atherosclerotic heart disease of native coronary artery without angina pectoris; E83.42 Hypomagnesemia
CPT/HCPCS: 36415; 71045-TC-FY; 71250-TC; 74176-TC; 80053; 80307; 81003; 82570; 82962; 83516; 83520; 83735; 84100; 84156; 84484; 85025; 85027; 85610; 85730; 86038; 86160; 86162; 86225; 86256; 86704; 86706; 86707; 86708; 86709; 87040; 87086; 87205; 87340; 87522; 93005; 93010; 93306-TC; 94640; 94660; 99285-25; C9803; J1644; U0003; U0005

== ENCOUNTER 2020-11-10 19:47 | Inpatient (IN) | payer OTHER ==
[2020-11-10 21:26] LABS: BASO % 0.7 % (0-2.0); EOS % 0.1 % (0-4.5); HEMATOCRIT 35.6 % (35.4-49); HEMOGLOBIN 11.9 GM/dL (11.7-16.9); LYMPH % 13.8 % (8-40); MCH 31.1 pg (25.7-33.7); MCHC 33.5 g/dl (32.0-35.9); MEAN CELL VOLUME 92.9 fl (80-96); MEAN PLT VOLUME 8.9 fl (7.5-11.1); MONO % 16.3 % (3.8-10.2); NEUT % 69.1 % (42.8-82.8); PLATELET COUNT 256 K/MM3 (134-434); RBC 3.82 M/mm3 (4.00-5.60); RDW 16.5 % (11.9-15.9); WHITE BLOOD COUNT 12.9 K/mm3 (4.0-10.0)
[2020-11-10 21:46] LABS: ALBUMIN 3.5 g/dl (3.4-5.0); BLOOD UREA NITROGEN 41.7 mg/dL (7-18); CALCIUM 9.2 mg/dL (8.5-10.1)
[2020-11-10 21:49] LABS: CREATININE 1.5 mg/dL (0.55-1.3)
[2020-11-10 21:51] LABS: METHADONE, UR NEGATIVE ng/ml (CUTOFF=300); OPIATES, URI NEGATIVE ng/ml (CUTOFF=300); URINE AMPHETAMINES NEGATIVE ng/ml (CUTOFF=500); URINE BARBITURATES NEGATIVE ng/ml (CUTOFF=200)
[2020-11-10 21:51] LABS: BILIRUBIN,TOTAL 0.2 mg/dL (0.2-1); TOT PROT 6.8 g/dl (6.4-8.2)
[2020-11-10 21:52] LABS: PHENCYCLIDINE,URINE NEGATIVE ng/ml (CUTOFF=25)
[2020-11-10 21:55] LABS: COCAINE, UR NEGATIVE ng/ml (CUTOFF=300)
[2020-11-10 21:56] LABS: URINE BENZODIAZEPINES POSITIVE ng/ml (CUTOFF=200)
[2020-11-10] MEDS ORDERED: MONTELUKAST NA 10 MG TABLET PO SCH (22:00)
[2020-11-10 22:16] LABS: ANISOCYTOSIS 2+; MACROCYTOSIS 0; PLATELET ESTIMATE NORMAL
[2020-11-10] MEDS ORDERED: SODIUM CHLORIDE 500 ML IV STA (22:36)
[2020-11-10] MEDS ORDERED: AZITHROMYCIN IVPB 500 MG in DEXTROSE 5%-WATER - 250 ML IVPB ONE (22:46)
[2020-11-10] MEDS ORDERED: methylPREDNISolone NA SUCC 40 MG/1 ML VIAL ONE (23:15)
[2020-11-10] MEDS ORDERED: MONTELUKAST NA 10 MG TABLET ONE (23:15)
[2020-11-10] MEDS: methylPREDNISolone NA SUCC 40 MG/1 ML VIAL IVPUSH SCH (23:23)
[2020-11-10] MEDS ORDERED: AZITHROMYCIN IVPB 500 MG/250 ML BAG IVPB ONE (23:24)
[2020-11-10] MEDS ORDERED: ALBUTEROL SO4 2.5/IPRATROPIUM 0.5 INH SOL 3 ML VIAL.NEB. NEB ONE (23:26)
[2020-11-11] MEDS ORDERED: ALBUTEROL SO4 HFA INHALER IH PRN (00:27)
[2020-11-11] MEDS ORDERED: guaiFENesin/D-M SUGAR-FREE/ACLHOL-FREE 118 ML BOTTLE PO PRN (00:35)
[2020-11-11 05:25] VITALS: BMI 33.3
[2020-11-11] MEDS: methylPREDNISolone NA SUCC 40 MG/1 ML VIAL IVPUSH SCH ×3 (06:11→16:45)
[2020-11-11] MEDS: PANTOPRAZOLE 40 MG TABLET PO SCH (06:11)
[2020-11-11] MEDS: HEPARIN NA (PORCINE) 5,000 UNITS/ML 1ML VIAL SQ SCH ×4 (06:11→22:27)
[2020-11-11] MEDS ORDERED: INSULIN SLIDING SCALE (NOVOLOG) 1 VIAL SQ SCH (07:00)
[2020-11-11 09:09] LABS: HEMOGLOBIN 11.4 GM/dl (11.7-16.9); MCH 31.4 pg (25.7-33.7); MCHC 32.7 g/dl (32.0-35.9); MEAN PLT VOLUME 9.4 fl (7.5-11.1); PLATELET COUNT 249 K/MM3 (134-434); RBC 3.64 M/mm3 (4.00-5.60); RDW 15.4 % (11.9-15.9); WHITE BLOOD COUNT 9.9 K/mm3 (4.0-10.8)
[2020-11-11 09:10] LABS: CALCIUM 8.7 mg/dl (8.5-10); CREATININE 1.1 mg/dl (0.55-1.3); MAGNESIUM 1.7 mg/dL (1.8-2.4); PHOSPHOROUS 3.4 mg/dl (2.5-4.9)
[2020-11-11] MEDS ORDERED: PT OWN MED DRAWER 7, Y5N ONE (09:30)
[2020-11-11] MEDS: ESCITALOPRAM OXALATE 10 MG TABLET PO SCH (09:49)
[2020-11-11] MEDS: NICOTINE 14 MG/24 HOURS TOPICAL PATCH TD SCH (09:50)
[2020-11-11] MEDS: PRAZOSIN HCL 1 MG CAPSULE PO SCH ×3 (09:50→22:26)
[2020-11-11] MEDS: POLYETHYLENE GLYCOL 3350 119 GM BTL PO SCH (09:50)
[2020-11-11] MEDS: amLODIPine BESYLATE 5 MG TABLET (FP) PO SCH (09:50)
[2020-11-11] MEDS: BUDESONIDE/FORMETEROL FUMARATE 160/4.5 mcg INHALER IH SCH ×2 (09:51→22:27)
[2020-11-11] MEDS: BUPRENORPHINE/NALOXONE 8 MG/2 MG FILM PACKET SL SCH ×2 (09:51→22:15)
[2020-11-11] MEDS ORDERED: INSULIN (LEVEMIR) 100 UNITS/ML UNITS SQ SCH (10:00)
[2020-11-11] MEDS ORDERED: methylPREDNISolone NA SUCC 40 MG/1 ML VIAL IVPUSH SCH (10:00)
[2020-11-11] MEDS: LOSARTAN POTASSIUM 25 MG TABLET PO SCH (10:37)
[2020-11-11] MEDS ORDERED: MAGNESIUM 1GM/D5W - 1 GM/100 ML IVPB IVPB ONE (11:00)
[2020-11-11] MEDS ORDERED: busPIRone HCL 5 MG TABLET PO ONE (12:00)
[2020-11-11] MEDS: INSULIN SLIDING SCALE (NOVOLOG) 1 VIAL SQ SCH ×3 (12:52→22:13)
[2020-11-11] MEDS ORDERED: QUEtiapine FUMARATE 100 MG TABLET (FP) PO SCH (22:00)
[2020-11-11] MEDS ORDERED: ATORVASTATIN CA 80 MG TABLET (FP) PO SCH (22:00)
[2020-11-11] MEDS ORDERED: MONTELUKAST NA 10 MG TABLET PO SCH (22:00)
[2020-11-11] MEDS: INSULIN (LEVEMIR) 100 UNITS/ML UNITS SQ SCH (22:12)
[2020-11-12] MEDS: HEPARIN NA (PORCINE) 5,000 UNITS/ML 1ML VIAL SQ SCH (06:20)
[2020-11-12] MEDS: INSULIN (LEVEMIR) 100 UNITS/ML UNITS SQ SCH (06:21)
[2020-11-12] MEDS: INSULIN SLIDING SCALE (NOVOLOG) 1 VIAL SQ SCH (06:21)
[2020-11-12] MEDS: PANTOPRAZOLE 40 MG TABLET PO SCH (06:22)
[2020-11-12] MEDS: PRAZOSIN HCL 1 MG CAPSULE PO SCH (09:25)
[2020-11-12] MEDS: BUPRENORPHINE/NALOXONE 8 MG/2 MG FILM PACKET SL SCH (09:26)
[2020-11-12] MEDS: amLODIPine BESYLATE 5 MG TABLET (FP) PO SCH (09:26)
[2020-11-12] MEDS: LOSARTAN POTASSIUM 25 MG TABLET PO SCH (09:26)
[2020-11-12] MEDS: NICOTINE 14 MG/24 HOURS TOPICAL PATCH TD SCH (09:26)
[2020-11-12] MEDS: ESCITALOPRAM OXALATE 10 MG TABLET PO SCH (09:26)
[2020-11-12] MEDS: BUDESONIDE/FORMETEROL FUMARATE 160/4.5 mcg INHALER IH SCH (09:27)
[2020-11-12] MEDS ORDERED: predniSONE 20 MG TABLET (UD) PO SCH (10:00)
[2020-11-12] MEDS: POLYETHYLENE GLYCOL 3350 119 GM BTL PO SCH (10:28)
[2020-11-12 10:36] VITALS: BP 116/62; PULSE 73; TEMP 98.4
== END 2020-11-12 11:36 | disposition home or self-care (01) | DRG 191 ==
LOC: JER 19:47 → JERBED 22:33 → FM/S 11-11 05:22
PROVIDERS: ADMIT Hospitalist; ATTEND Nurse Practitioner Acute Care
DX: J44.1 Chronic obstructive pulmonary disease with (acute) exacerbation (principal); N17.9 Acute kidney failure, unspecified; F10.10 Alcohol abuse, uncomplicated; F11.10 Opioid abuse, uncomplicated; E11.40 Type 2 diabetes mellitus with diabetic neuropathy, unspecified; I10 Essential (primary) hypertension; E78.5 Hyperlipidemia, unspecified; J44.9 Chronic obstructive pulmonary disease, unspecified; Z85.118 Personal history of other malignant neoplasm of bronchus and lung; F17.210 Nicotine dependence, cigarettes, uncomplicated; F41.8 Other specified anxiety disorders; E66.9 Obesity, unspecified; Z68.33 Body mass index [BMI] 33.0-33.9, adult
CPT/HCPCS: 36415; 71045-TC-FY; 80048; 80053; 80307; 82962; 83735; 84100; 85025; 85027; 85379; 93005; 93010; 99285-25; C9803; J1644; U0003; U0005